=== PATIENT | male | born 1975 | race African-American/Black ===

== ENCOUNTER 2017-06-15 06:54 | Emergency (ER) | payer MEDICAID ==
[~2017-06-15] VITALS: Ht 188 cm; Wt 181.4 kg
--- NOTE | 2017-06-15 06:51 | Emergency Room Report ---
History of Present Illness General Source: Patient, EMS Present Illness HPI 42YOM BIBEMS for "my left foot hurts". Endorses broke foot recently (not sure when and how), had surgery 4 days ago and discharged from "[facility]. C/o pain specifically to lowerr ankle on both medial/lateral aspect by foot. Has walking boot bedside and foot is wrapped in YVETTE wrap EMS endorses patient may be intoxicated Allergies: Coded Allergies: No Known Allergies (Unverified , 06/15/17) Patient History Limited by: medical condition Past Medical History: none Past Surgical History: other - "foot surgery" Pertinent Family History: none Social History: Denies: smoking, alcohol use, drug use Immunizations: UTD Reviewed Nursing Documentation: PMH: Agreed; PSxH: Agreed Review of Systems All Other Systems: negative except mentioned in HPI Physical Exam Sp02 EP Interpretation: reviewed, normal General Appearance: normal inspection, well appearing, no apparent distress, alert, GCS 15, non-toxic, obese Head: normocephalic, atraumatic Eyes: bilateral eye PERRL, bilateral eye EOMI ENT: normal ENT inspection, hearing grossly normal, normal pharynx, no angioedema, normal voice, TMs + canals normal, uvula midline, moist mucus membranes Neck: normal inspection, full range of motion, supple, thyroid normal, no meningismus, no bony tend Respiratory: normal inspection, lungs clear, normal breath sounds, no rhonchi, no respiratory distress, no retraction, no accessory muscle use, no wheezing, speaking full sentences Cardiovascular #1: regular rate, rhythm, no edema, no JVD, normal capillary refill Gastrointestinal: normal inspection, normal bowel sounds, non tender, soft, no mass, no peritonitis, non-distended, no guarding, no hernia, no pulsatile mass Genitourinary: no CVA tenderness Musculoskeletal: normal inspection, back normal, normal range of motion, no calf tenderness, pelvis stable, Ofe's Sign negative, other - Left ankle/foot: 1+ non-pittign edema extending from foot to ankle. There is 1 anterior medial suture. posterior/lateral there is a running suture 6cm in length. Overall foot no erythema, no palpable warmth or crepitus, no sign of infection. No open wounds. Neurologic: normal inspection, alert, oriented x3, responsive, dope firer III-XII nml as tested, motor strength/tone normal, cerebellar normal, normal gait, speech normal Psychiatric: normal inspection, judgement/insight normal, mood/affect normal, no suicidal/homicidal ideation, no delusions Skin: normal inspection, normal color, no rash Lymphatic: normal inspection, no adenopathy Medical Decision Making Diagnostic Impression: Primary Impression: Foot pain, left ER Course VSS, afebrile Well appearing Non septic appearing No obvious signs of infection to left foot at this time - no cellulitis, no crepitus on exam Xray: Hardware intact, no acute fx No new acute trauma Patient already has walking boot DC home Ortho followup as recommended by [facility] Other X-Ray Diagnostic Results Other X-Ray Diagnostic Results : X-Ray ordered: Foot # of Views/Limited Vs Complete: 2 View Indication: Pain EP Interpretation: Yes Interpretation: no dislocation, no soft tissue swelling, other - Hardware intact, no acute fractures. Healing subacute/chronic fractures Electronically Signed by: Dr Chapincito Orta MD Status: improved Disposition: HOME, SELF-CARE CHAPINCITO ORTA M.D. Jun 15, 2017 06:51
[2017-06-15 07:26] VITALS: BP 94/51
[2017-06-15] MEDS ORDERED: Ketorolac 60mg Inj IM ONE (08:30)
--- NOTE | 2017-06-15 11:28 | Diagnostic Imaging Report ---
Indication: Pain Comparison: None Findings: 2 views of the left foot were obtained. No acute fractures, malalignment, erosions or periostitis are identified. There is soft tissue swelling of the dorsum of the foot.. Impression: No acute findings
[2017-06-15 11:33] VITALS: BP 110/62
[2017-06-15 13:22] VITALS: BP 117/68
== END 2017-06-15 13:22 | disposition home or self-care (01) ==
LOC: EDBD 06:54 → EMR 08:02
DX: M25.572 Pain in left ankle and joints of left foot (principal); E66.9 Obesity, unspecified; Z68.43 Body mass index [BMI] 50.0-59.9, adult; R60.0 Localized edema
CPT/HCPCS: 96372; 99283

== ENCOUNTER 2017-06-21 21:01 | Emergency (ER) | payer MEDICAID ==
[~2017-06-21] VITALS: Ht 188 cm; Wt 158.8 kg
--- NOTE | 2017-06-21 21:15 | Emergency Room Report ---
History of Present Illness General Chief Complaint: Alcohol Intoxication Source: Patient, EMS Present Illness HPI 42 yo M pw alcohol intox. admits to drinking vodka tonight. picked up on the [address] found in front of his house by his neighbors. currently aox3 but intoxicated. has hx of L foot fx s/p surgery few weeks ago, was seen in ED 06/15 with similar complaints denies any pain Allergies: Coded Allergies: No Known Allergies (Unverified , 06/15/17) UNABLE TO ASSESS (Unverified , 06/21/17) Patient History Past Medical History: see triage record Past Surgical History: none Pertinent Family History: none Reviewed Nursing Documentation: PMH: Agreed; PSxH: Agreed Nursing Documentation-PMH Past Medical History Deferred: Patient Unconscious Hx Hypertension: Yes Review of Systems All Other Systems: negative except mentioned in HPI Physical Exam Vital Signs Date Time Temp Pulse Resp B/P (MAP) Pulse Ox O2 Delivery O2 Flow Rate FiO2 06/21/17 20:55 98.2 81 15 121/71 98 Room Air 98.2 Sp02 EP Interpretation: reviewed, normal General Appearance: no apparent distress, alert, other - intox but cooperative Head: normocephalic, atraumatic Eyes: bilateral eye normal inspection, bilateral eye PERRL, bilateral eye EOMI ENT: normal ENT inspection, normal pharynx, normal voice, moist mucus membranes Neck: normal inspection, full range of motion, supple Respiratory: normal inspection, lungs clear, normal breath sounds, no respiratory distress, no retraction, no wheezing, speaking full sentences, chest symmetrical Cardiovascular #1: normal inspection, regular rate, rhythm, normal capillary refill Cardiovascular #2: 2+ radial (R), 2+ radial (L) Gastrointestinal: normal inspection, non tender, soft, non-distended, no guarding Genitourinary: no CVA tenderness Musculoskeletal: back normal, other - L foot with somemild swelling, sutures in place Neurologic: alert, responsive, motor strength/tone normal, sensory intact, other - intox Psychiatric: other - intox Skin: normal inspection, normal color, no rash, warm/dry, well hydrated, normal turgor Medical Decision Making Diagnostic Impression: Primary Impression: Acute alcoholic intoxication ER Course 42-year-old male with alcohol intoxication DDX: Likely alcohol intoxication No signs of trauma Plan: BGM, Obtain labs, alcohol level, IVF, pending sobriety ER course: Patient has remained stable during ED stay. Received fluids now clinicalyl sober ambulated steady gait Disposition: Patient is to be discharged to home. Patient is instructed to follow up with their primary care doctor within 5 days. Please note that this Emergency Department Report was dictated using [employer] technology software, occasionally this can lead to erroneous entry secondary to interpretation by the dictation equipment Laboratory Tests Test 06/21/17 21:20 06/21/17 21:42 White Blood Count 5.5 K/UL (4.8-10.8) Red Blood Count 4.36 M/UL (4.70-6.10) L Hemoglobin 12.4 G/DL (14.2-18.0) L Hematocrit 36.8 % (42.0-52.0) L Mean Corpuscular Volume 84 FL (80-99) Mean Corpuscular Hemoglobin 28.4 PG (27.0-31.0) Mean Corpuscular Hemoglobin Concent 33.6 G/DL (32.0-36.0) Red Cell Distribution Width 16.7 % (11.6-14.8) H Platelet Count 192 K/UL (150-450) Mean Platelet Volume 6.2 FL (6.5-10.1) L Neutrophils (%) (Auto) 45.5 % (45.0-75.0) Lymphocytes (%) (Auto) 46.4 % (20.0-45.0) H Monocytes (%) (Auto) 6.5 % (1.0-10.0) Eosinophils (%) (Auto) 0.3 % (0.0-3.0) Basophils (%) (Auto) 1.3 % (0.0-2.0) Sodium Level 143 MMOL/L (136-145) Potassium Level 3.1 MMOL/L (3.5-5.1) L Chloride Level 102 MMOL/L (98-107) Carbon Dioxide Level 27 MMOL/L (21-32) Anion Gap 14 mmol/L (5-15) Blood Urea Nitrogen 11 mg/dL (7-18) Creatinine 1.0 MG/DL (0.55-1.30) Estimate Glomerular Filtration Rate > 60 mL/min (>60) Glucose Level 131 MG/DL (74-106) H Calcium Level 8.5 MG/DL (8.5-10.1) Total Bilirubin 0.3 MG/DL (0.2-1.0) Aspartate Amino Transferase (AST) 66 U/L (15-37) H Alanine Aminotransferase (ALT) 80 U/L (12-78) H Alkaline Phosphatase 98 U/L (46-116) Total Protein 7.6 G/DL (6.4-8.2) Albumin 3.3 G/DL (3.4-5.0) L Globulin 4.3 g/dL Albumin/Globulin Ratio 0.8 (1.0-2.7) L Salicylates Level 1.1 ug/mL (2.8-20) L Acetaminophen Level < 2 MCG/ML (10-30) L Serum Alcohol 464 mg/dL Urine Opiates Screen Negative (NEGATIVE) Urine Barbiturates Screen Negative (NEGATIVE) Phencyclidine (PCP) Screen Negative (NEGATIVE) Urine Amphetamines Screen Negative (NEGATIVE) Urine Benzodiazepines Screen Positive (NEGATIVE) H Urine Cocaine Screen Negative (NEGATIVE) Urine Marijuana (THC) Screen Negative (NEGATIVE) Last Vital Signs Date Time Temp Pulse Resp B/P (MAP) Pulse Ox O2 Delivery O2 Flow Rate FiO2 06/21/17 20:55 98.2 81 15 121/71 98 Room Air 98.2 Disposition: HOME, SELF-CARE Condition: Improved Patient Instructions: Alcohol Intoxication, Uvas-ei-Ruyz Mackenzie Ochoa M.D. Jun 21, 2017 21:15
[2017-06-21 21:28] VITALS: BP 124/54
[2017-06-21 21:37] LABS: BASOPHILS % (AUTO) 1.3 % (0.0-2.0); EOSINOPHILS % (AUTO) 0.3 % (0.0-3.0); HEMATOCRIT 36.8 % (42.0-52.0); HEMOGLOBIN 12.4 G/DL (14.2-18.0); LYMPHOCYTES % (AUTO) 46.4 % (20.0-45.0); MEAN CORPUSCULAR VOLUME 84 FL (80-99); MONOCYTES % (AUTO) 6.5 % (1.0-10.0); NEUTROPHILS % (AUTO) 45.5 % (45.0-75.0); PLATELET COUNT 192 K/UL (150-450); RED BLOOD COUNT 4.36 M/UL (4.70-6.10); RED CELL DISTRIBUTION WIDTH 16.7 % (11.6-14.8); WHITE BLOOD COUNT 5.5 K/UL (4.8-10.8)
[2017-06-21 21:48] LABS: ANION GAP 14 mmol/L (5-15); BLOOD UREA NITROGEN 11 mg/dL (7-18); CALCIUM 8.5 MG/DL (8.5-10.1); CARBON DIOXIDE 27 MMOL/L (21-32); CHLORIDE 102 MMOL/L (98-107); POTASSIUM 3.1 MMOL/L (3.5-5.1); SODIUM 143 MMOL/L (136-145)
[2017-06-21 21:54] LABS: ALANINE AMINOTRANSFERASE 80 U/L (12-78); ALBUMIN 3.3 G/DL (3.4-5.0); ALBUMIN/GLOBULIN RATIO 0.8 (1.0-2.7); ALKALINE PHOSPHATASE 98 U/L (46-116); ASPARTATE AMINO TRANSFERASE 66 U/L (15-37); BILIRUBIN,TOTAL 0.3 MG/DL (0.2-1.0)
[2017-06-22] VITALS (7 sets, daily range): BP systolic 118–139; BP diastolic 62–84
[2017-06-22] MEDS ORDERED: NKM (06:35)
[2017-06-22] MEDS ORDERED: MORPHINE S10 MG/5 ML ORAL (06:43)
[2017-06-22] MEDS ORDERED: LISINOPRIL40 MG ORAL (06:43)
[2017-06-22] MEDS ORDERED: HYDROCHLOROTHIA25 MG ORAL (06:43)
[2017-06-22] MEDS ORDERED: METOPROLOL TAR100 MG ORAL (06:43)
[2017-06-22] MEDS ORDERED: ZOFRAN ODT4 MG ORAL (14:42)
[2017-06-22] MEDS ORDERED: PEPCID20 MG ORAL (14:42)
[2017-06-22] MEDS ORDERED: TYLENOL325 MG ORAL (14:42)
--- NOTE | 2017-06-24 06:15 | Consultation ---
DATE OF CONSULTATION: 06/22/2017 CONSULTING PHYSICIAN: Dangelo Woods M.D. HISTORY OF PRESENT ILLNESS: The patient is a 42-year-old homosexual male with a history of alcohol abuse and depression, who came to the emergency room initially for a complaint and he stated that his ER doctor was indifferent, therefore he became angry and stated he wants to end his life. During the evaluation, he denied having any history of suicide attempt, stated that he has no thoughts of . He stated that he would like to be discharged home, he was not withdrawing from alcohol. He has been treated with benzodiazepines in the ER. His system was positive also for benzodiazepine in addition to alcohol. He denied any use of benzodiazepines. The patient agreed to outpatient referral as well as medications. MENTAL STATUS EXAM: The patient is alert and oriented x4. Cooperative, pleasant. Mood was dysphoric. Affect was full range, congruent with mood. Thought process is linear. Thought content, no suicidal or homicidal ideation. Cognition is intact. ASSESSMENT: AXIS I Alcohol dependence. Major depressive disorder. AXIS II Deferred. AXIS III As above. AXIS IV Low. AXIS V Global assessment of functioning is 50. PLAN: The patient will be discharged as he is not an imminent danger to self or others nor gravely disabled, not holdable. Dangelo Woods M.D. DR: COURTNEY JOB#: [id number] CC:
== END 2017-06-22 15:03 | disposition home or self-care (01) ==
LOC: EDBD 21:01 → EMR 21:18
DX: F10.129 Alcohol abuse with intoxication, unspecified (principal); Y90.8 Blood alcohol level of 240 mg/100 ml or more; I10 Essential (primary) hypertension
CPT/HCPCS: 36415; 80053; 80307; 80329; 85025; 96361; 96374; 99284; J8499